=== PATIENT | male | born 1960 ===

== ENCOUNTER → 2023-11-06 17:11 | Outpatient (REF) | payer OTHER, SELFPAY | LOC: MRI 3T 17:11 | PROVIDERS: ATTENDING PHYSICIAN Urology; FAMILY PHYSICIAN Internal Medicine | DX: R97.20 Elevated prostate specific antigen [PSA] (principal) | CPT/HCPCS: 72197; A9575 ==

== ENCOUNTER → 2025-05-05 20:25 | Outpatient (REF) | payer OTHER, SELFPAY | LOC: MRI 20:25 | PROVIDERS: ATTENDING PHYSICIAN Internal Medicine | DX: H91.93 Unspecified hearing loss, bilateral (principal); R41.3 Other amnesia; Z23 Encounter for immunization | CPT/HCPCS: 70553; A9575 ==